=== PATIENT | female | born 1955 | race Caucasian/White ===

== ENCOUNTER → 2020-04-28 | Outpatient (CLI) | payer OTHER | END | disposition home or self-care (01) | LOC: US 14:00 | PROVIDERS: ATTEND Family Medicine | DX: M79.601 Pain in right arm (principal) ==

== ENCOUNTER → 2025-01-07 | Day surgery (SDC) | payer BC, OTHER ==
[~2025-01-07] VITALS: Ht 165.1 cm; Wt 87.5 kg
[~2025-01-07] MED LIST: ATORVASTATIN CA40 M1 PO; ENTRESTO 97 MG1 EACH PO; LEVOTHYROXINE50 MC1 PO; Lactated Ringer's Solution 1,000 ML IV ONE; Lidocaine Hydrochloride 5 ML VIAL IV ONE; MONTELUKAST SOD10 MG PO; OMEPRAZOLE40 MG PO; PROPOFOL 200 MG/20 ML VIAL IV ONE; PROZAC10 MG PO; ZYRTEC10 M2 PO
[2025-01-07 08:12] VITALS: BP 140/68
[2025-01-07 09:04] VITALS: BP 132/66
[2025-01-07 09:19] VITALS: BP 96/75
[2025-01-07 09:34] VITALS: BP 155/87
== END | disposition home or self-care (01) ==
LOC: SDC 01-04 11:00
PROVIDERS: ATTEND Surgery
DX: Z12.11 Encounter for screening for malignant neoplasm of colon (principal); K21.9 Gastro-esophageal reflux disease without esophagitis; K44.9 Diaphragmatic hernia without obstruction or gangrene; K57.30 Diverticulosis of large intestine without perforation or abscess without bleeding; K64.9 Unspecified hemorrhoids; G47.30 Sleep apnea, unspecified; I10 Essential (primary) hypertension; F41.9 Anxiety disorder, unspecified; E07.9 Disorder of thyroid, unspecified; Z98.890 Other specified postprocedural states; Z90.710 Acquired absence of both cervix and uterus; Z91.040 Latex allergy status; Z90.49 Acquired absence of other specified parts of digestive tract; Z79.899 Other long term (current) drug therapy

== ENCOUNTER → 2025-01-10 | Outpatient (CLI) | payer BC, OTHER ==
[~2025-01-10] MED LIST changes: -Lactated Ringer's Solution 1,000 ML IV ONE; -Lidocaine Hydrochloride 5 ML VIAL IV ONE; -PROPOFOL 200 MG/20 ML VIAL IV ONE
== END | disposition home or self-care (01) ==
LOC: CARD 01-07 11:30
PROVIDERS: ATTEND Family Medicine
DX: I51.81 Takotsubo syndrome (principal)

== ENCOUNTER → 2025-01-11 | Outpatient (CLI) | payer BC, OTHER | END | disposition home or self-care (01) | LOC: RAD 01-07 10:30 | PROVIDERS: ATTEND Family Medicine | DX: M81.0 Age-related osteoporosis without current pathological fracture (principal); Z13.820 Encounter for screening for osteoporosis ==